=== PATIENT | female | born 1950 | race American Indian/Alaskan Native ===

== ENCOUNTER 2021-06-10 14:40 | Emergency (ER) | payer MEDICARE ==
--- NOTE | 2021-06-10 16:17 | Cat Scan Report ---
CT head/brain wo con INDICATION / CLINICAL INFORMATION: 71 years Female; Stroke symptoms. TECHNIQUE: Routine CT head without contrast. All CT scans at this location are performed using CT dos e reduction for ALARA by means of automated exposure control. COMPARISON: None. FINDINGS: BRAIN / INTRACRANIAL CONTENTS: No acute hemorrhage, mass effect, midline shift, hydrocephalus, or acu te, large territorial infarct. No signs of significant atrophy or chronic infarct. No significant whi te matter abnormality seen. CRANIOCERVICAL JUNCTION: No significant abnormality. ORBITS: No significant abnormality of visualized orbits. SINUSES / MASTOIDS: Visualized paranasal sinuses and mastoid air cells are essentially clear. ADDITIONAL FINDINGS: Prominent soft tissue is seen in the roof the nasopharynx, presumably related to reactive adenoidal tissue. Please clinically correlate. 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 IMPRESSION: 1. No focal mass, hemorrhage, hydrocephalus, or acute, large territorial infarct. Signer Name: Pavan Lopez MD, III Signed: 06/10/2021 4:12 PM Workstation Name: [id number]
--- NOTE | 2021-06-10 16:25 | Cat Scan Report ---
. CT angio neck INDICATION / CLINICAL INFORMATION: 71 years Female; stroke sx. TECHNIQUE: Thin cut axial images obtained through the head during IV bolus contrast administration. S agittal, coronal, and 3 plane MIP reconstructions performed by the technologist. NASCET type criteria used evaluate stenoses. All CT scans at this location are performed using CT dose reduction for ALAR A by means of automated exposure control. . COMPARISON: None available. FINDINGS: ARCH: Normal aortic arch branching suggested. CAROTID ARTERIES: The visualized common and internal carotid arteries are widely patent. VERTEBRAL ARTERIES: Right dominant vertebral system seen. Focal area of mild to moderate narrowing is seen at the origin of the dominant right vertebral artery. No significant narrowing appreciated in t he nondominant left vertebral artery. ADDITIONAL FINDINGS: Multilevel disc space narrowing seen in the cervical spine. Moderate osseous for aminal narrowing is seen on the left at C5-6 from uncinate hypertrophy. Mild to moderate narrowing se en on the left at C3-4. On the right, there is moderate osseous foraminal narrowing at C4-5 and C5-6, largely related to uncinate hypertrophy. Mild, multilevel facet hypertrophy noted. Mild, is level di sc disease seen. No dominant herniation or significant canal stenosis appreciated. Mild scarring type changes seen in the lung apices. Right temporomandibular joint disease noted. IMPRESSION: 1. Focal area of narrowing at the origin of the dominant right vertebral artery. 2. No significant narrowing seen in the anterior circulation. Signer Name: Pavan Lopez MD, III Signed: 06/10/2021 4:20 PM Workstation Name: [id number]
[2021-06-10 17:00] LABS: Basophils % (Auto) 0.3 % (0.0-1.8); Eosinophils % (Auto) 0.4 % (0.0-4.3); Hematocrit 39.4 % (30.3-42.9); Hemoglobin 13.1 gm/dl (10.1-14.3); Lymphocytes # (Auto) 0.7 K/mm3 (1.2-5.4); Lymphocytes % (Auto) 7.5 % (13.4-35.0); Mean Corpuscular HGB Conc 33 % (30-34); Mean Corpuscular Volume 94 fl (79-97); Monocytes # (Auto) 0.7 K/mm3 (0.0-0.8); Monocytes % (Auto) 8.1 % (0.0-7.3); Platelet Count 389 K/mm3 (140-440); Red Cell Distribution Width 13.1 % (13.2-15.2)
[2021-06-10 17:05] LABS: INR 1.06 (0.87-1.13)
[2021-06-10 17:06] LABS: Partial Thromboplastin Time 26.9 Sec. (24.2-36.6); Thrombin Time 18.3 Sec. (15.1-19.6)
[2021-06-10 17:10] LABS: Creatine Kinase MB 2.7 ng/mL (0.0-4.0)
[2021-06-10 17:12] LABS: Albumin 4.1 g/dL (3.9-5); Calcium 8.8 mg/dL (8.4-10.2)
[2021-06-10] MEDS ORDERED: SODIUM CHLORIDE 0.9% 1000 ML 1,000 ML IV ONE (17:47)
[2021-06-10 19:29] LABS: Amphetamine Screen,Urine PRESUMPTIVE NEGATIVE; Benzodiazepines Screen,Urine PRESUMPTIVE NEGATIVE; Cannabinoid Screen,Urine PRESUMPTIVE NEGATIVE; Cocaine Screen,Urine PRESUMPTIVE NEGATIVE; Methadone Screen,Urine PRESUMPTIVE NEGATIVE; Opiate Screen,Urine PRESUMPTIVE NEGATIVE
[2021-06-10 19:34] LABS: Bacteria,Urine 1+ /HPF (Negative); Bilirubin,Urine NEG (Negative); Blood,Urine NEG (Negative); Color,Urine Yellow (Yellow); Mucus,Urine FEW /HPF; Urobilinogen,Urine < 2.0 mg/dL (<2.0)
[2021-06-10] MEDS ORDERED: cefTRIAXone/NS 1 GM/50 ML 1 GM/50 ML BAG IV ONE (19:42)
--- NOTE | 2021-06-10 21:02 | Emergency Department Report ---
- General Chief complaint: Weakness Stated complaint: FATIGUE/WEAK Time Seen by Provider: 06/10/21 15:27 Source: patient Mode of arrival: Ambulatory Limitations: No Limitations - History of Present Illness Initial comments: weakness and lethargy, pt reports one episode of acute dizziness and vomiting.pt was driving with her family to [place] when she started feeling weak and had nausea and vomiting nof ever no neurological symtpoms Complaint: generalized weakness -: Sudden, hour(s) Location: generalized Severity scale (0 -10): 3 Improves with: none Worsens with: morning Associated Symptoms: nausea/vomiting. denies: chest pain, confusion, dark stools, diaphoresis, easy bruising - Related Data Allergies Allergy/AdvReac Type Severity Reaction Status Date / Time No Known Allergies Allergy Verified 06/10/21 15:24 ED Review of Systems ROS: Stated complaint: FATIGUE/WEAK Other details as noted in HPI Constitutional: denies: chills, fever Eyes: denies: eye pain, eye discharge, vision change ENT: denies: ear pain, throat pain Respiratory: denies: cough, shortness of breath, wheezing Cardiovascular: denies: chest pain, palpitations Endocrine: no symptoms reported Gastrointestinal: denies: abdominal pain, nausea, diarrhea Genitourinary: denies: urgency, dysuria, discharge Musculoskeletal: denies: back pain, joint swelling, arthralgia Skin: denies: rash, lesions Neurological: denies: headache, weakness, paresthesias Psychiatric: denies: anxiety, depression Hematological/Lymphatic: denies: easy bleeding, easy bruising ED Past Medical Hx - Past Medical History Previous Medical History?: Yes Hx Hypertension: Yes ED Physical Exam - General Limitations: No Limitations General appearance: alert, in no apparent distress - Head Head exam: Present: atraumatic, normocephalic - Eye Eye exam: Present: normal appearance - ENT ENT exam: Present: mucous membranes moist - Neck Neck exam: Present: normal inspection - Respiratory Respiratory exam: Present: normal lung sounds bilaterally. Absent: respiratory distress - Cardiovascular Cardiovascular Exam: Present: regular rate, normal rhythm. Absent: systolic murmur, diastolic murmur, rubs, gallop - GI/Abdominal GI/Abdominal exam: Present: soft, normal bowel sounds - Extremities Exam Extremities exam: Present: normal inspection - Back Exam Back exam: Present: normal inspection - Neurological Exam Neurological exam: Present: alert, oriented X3 - Psychiatric Psychiatric exam: Present: normal affect, normal mood - Skin Skin exam: Present: warm, dry, intact, normal color. Absent: rash ED Course Vital Signs 06/10/21 06/10/21 06/10/21 15:23 15:50 16:01 Temperature 98 F Pulse Rate 88 76 Respiratory 16 17 Rate Blood Pressure 111/67 Blood Pressure 146/114 [Left] O2 Sat by Pulse 98 93 91 Oximetry 06/10/21 06/10/21 06/10/21 16:15 16:31 16:45 Temperature Pulse Rate 76 73 77 Respiratory 21 22 19 Rate Blood Pressure 111/67 111/67 111/67 Blood Pressure [Left] O2 Sat by Pulse 95 91 91 Oximetry 06/10/21 06/10/21 06/10/21 17:01 17:15 17:31 Temperature Pulse Rate 80 77 81 Respiratory 20 17 20 Rate Blood Pressure 114/63 114/63 114/63 Blood Pressure [Left] O2 Sat by Pulse 92 95 94 Oximetry 06/10/21 06/10/21 06/10/21 17:45 18:01 18:15 Temperature Pulse Rate 82 79 75 Respiratory 13 15 12 Rate Blood Pressure 114/63 79/28 79/28 Blood Pressure [Left] O2 Sat by Pulse 97 96 96 Oximetry 06/10/21 18:31 Temperature Pulse Rate 79 Respiratory 15 Rate Blood Pressure 79/28 Blood Pressure [Left] O2 Sat by Pulse 96 Oximetry ED Medical Decision Making - Lab Data Result diagrams: 06/10/21 16:03 06/10/21 16:03 - EKG Data -: EKG Interpreted by Me - Radiology Data Radiology results: report reviewed, image reviewed - Medical Decision Making spoke with neurologist stroke alerted , on arrival looks weak but no focal neurological deficit , head ct and CTA negative pt is back to her basline, fluids given feels better vss, uti noted , abx given Critical care attestation.: If time is entered above; I have spent that time in minutes in the direct care of this critically ill patient, excluding procedure time. ED Disposition Clinical Impression: Weakness, UTI (urinary tract infection) Disposition: 01 HOME / SELF CARE / HOMELESS Is pt being admited?: No Does the pt Need Aspirin: No Condition: Stable Referrals: PRIMARY CARE, [Primary Care Provider] - 3-5 Days
[2021-06-10 21:44] VITALS: BP 117/57
--- NOTE | 2021-06-10 22:02 | Emergency Department Report ---
Blank Doc - Documentation Documentation: [facility] Consult Note # Demographics Consult Type: Acute Stroke Level 1 (0-4.5 hrs) Patient Location: Emergency Room First Name: Sonia Last Name: Luke Date of : 1950 Age: 71 Gender: Female Facility: [facility] Time of Initial Page ( Time): 06/10/2021, 15:24 Time of Return Call (Eastern Time): 06/10/2021, 15:24 # HPI History: 71 year old female with hx of HTN, HLD presents to ED after having episode of vomiting. Patient states she feels weak all over. She denies any focal deficits that had occurred. Code stroke was called prior to patients arrival. Unclear if any findings at that time Last Known Normal: I have collected independent history specific to time last normal or last known well. We have collaborated with the provider and at this time, we have the most current timeline with the information that is available. 12 pm # Scores Time of exam and NIHSS ( Time): 06/10/2021, 14:58 Level of Consciousness 1a: [0] = Alert; keenly responsive LOC Questions 1b: [0] = Answers both questions correctly LOC Commands 1c: [0] = Performs both tasks correctly Best Gaze 2: [0] = Normal Visual 3: [0] = No visual loss Facial Palsy 4: [0] = Normal symmetrical movements Motor Arm Left 5a: [0] = No drift Motor Arm Right 5b: [0] = No drift Motor Leg Left 6a: [0] = No drift Motor Leg Right 6b: [0] = No drift Limb Ataxia 7: [0] = Absent Sensory 8: [0] = Normal Best Language 9: [0] = No aphasia Dysarthria 10: [0] = Normal Extinction and Inattention 11: [0] = No abnormality NIHSS Total: 0 # PMH-FH-SH Past Medical History: depression hyperlipidemia hypertension Social History: smoker non-drinker no drugs lives with family Medications: antihypertensive lipid lowering agent # Data Head CT: no bleed per radiologist read CTA Head: no large vessel occlusion per radiologist read CTA Neck: patent vessels per radiologist read # Assessment Impression: 71 year old female with hx of HTN, HLD presents to ED with generalized weakness s/p episode of vomiting. Patient denies any focal weakness or sensory deficits. It is unclear what we reported to EMS. ED provider who did not see the patient prior to going to CT feels similarly that patient did not have focal findings. Patient states she always just felt weakness all over. Patient lives alone thus no family. NIHSS: 0. CTH and CTA negative for any acute findings. Recommend work up per primary. No indication for stroke work up given the story provided, examination and CT findings negative. ED provider also not clear on why code stroke was called. # Plan Labs: CBC comprehensive metabolic panel ESR ua
--- NOTE | 2021-06-11 08:28 | Cat Scan Report ---
CTA NECK WITH CONTRAST HISTORY: "Stroke symptoms" COMPARISON: None. TECHNIQUE: Routine CTA of the neck was performed. 3-D/MIP reformats were postprocessed. Percentage s tenosis is determined by direct quantitative measurements of diseased internal carotid artery diamete r compared with normal distal internal carotid artery reference segments or by criteria similar to NA SCET where applicable.All CT scans at this location are performed using CT dose reduction for ALARA b y means of automated exposure control CONTRAST: 100 ml of Omnipaque 350 FINDINGS: Aortic arch: No significant abnormality. Cervical vertebral arteries: Right vertebral artery: Focal atherosclerotic plaque at the origin of right vertebral artery approxim ately 70% stenoses; antegrade flow; rest of the right vertebral artery normal Left vertebral artery: Normal from the origin up to intradural segment Common carotid arteries: No significant abnormality. Carotid bifurcations: Both carotid bifurcations are normal with the proximal internal carotid arterie s more generous in size; 5 mm long stenotic segment with the approximately 20% stenoses in the proxim al right internal carotid artery, 2 cm from the origin Cervical internal carotid arteries: No significant abnormality. Additional findings: None. IMPRESSION: Both carotid bifurcations are widely open More than 70% stenoses in the dominant right vertebral artery origin CTA HEAD WITH CONTRAST HISTORY: FINDINGS: CTA Head: Intracranial vertebral arteries: No significant abnormality. Basilar artery: No significant abnormality. Posterior cerebral arteries: No significant abnormality. Intracranial internal carotid arteries: No significant abnormality. Anterior cerebral arteries: No significant abnormality. Middle cerebral arteries: No significant abnormality. Dural venous sinuses:Not optimally opacified. No significant abnormality. Additional findings: Empty sella IMPRESSION: 1. No significant abnormality. Signer Name: Nino Long MD Signed: 06/11/2021 8:23 AM Workstation Name: [id number]
== END 2021-06-10 21:48 | disposition home or self-care (01) ==
LOC: ED 14:40
DX: N39.0 Urinary tract infection, site not specified (principal); R53.1 Weakness; I10 Essential (primary) hypertension
CPT/HCPCS: 36415; 70450; 70496; 70498; 80053; 80307; 81001; 82550; 82553; 82962; 84484; 85025; 85610; 85670; 85730; 87086; 93005; 96361; 96365; 99284; J0696; J7030; Q9967; 80320; Q0162; G0480